=== PATIENT | male | born 1965 | race Caucasian/White ===

== ENCOUNTER 2021-06-23 15:58 | Emergency (ER) | payer OTHER, SELFPAY ==
--- NOTE | ~2021-06-23 | XR_ITS ---
EXAM: XR femur LT min 2V HISTORY: laceration to lower ant/ lat LT femur COMPARISON: None available FINDINGS: Normal mineralization. Joint spaces maintained. Alignment of the hip and knee grossly inta ct. Large soft tissue defect in the anterolateral left thigh. The defect does not appear to extend to the bone. No fracture or dislocation. No periosteal change. No unexpected radiopaque foreign body. IMPRESSION: Left anterolateral thigh laceration. No acute osseous abnormality detected in the left femur. Reviewed, dictated and finalized at location K. IMPRESSION: Left anterolateral thigh laceration. No acute osseous abnormality detected in t he left femur.
[2021-06-23 16:10] VITALS: BP 165/90; PULSE 81; RESP 18; TEMP 36.6; O2SAT 97
[2021-06-23] MEDS: KETOROLAC (*BKC) 60 MG/2 ML VIAL IM (16:29)
--- NOTE | 2021-06-23 16:29 | ED.WOUNDLAC ---
HPI - Wound/Laceration General Chief Complaint: Wound/Laceration Stated Complaint: laceration left leg Time Seen by Provider: 06/23/21 16:01 Source: patient, RN notes reviewed and old records reviewed Mode of arrival: ambulatory Limitations: no limitations History of Present Illness Onset (ago): hour(s) (2) Location: other (left thigh laceration, 5.2 cm) Extremity Location: Left: thigh Place: outdoors Patient tetanus UTD: No Context: accidental Associated symptoms: pain Treatments prior to arrival: bandage Related Data Home Medications Medication Instructions Recorded Confirmed amlodipine 10 mg PO DAILY 06/23/21 06/23/21 budesonide-formoterol [Symbicort] 1 puff INHALATION DAILY 06/23/21 06/23/21 gabapentin 300 mg PO DAILY 06/23/21 06/23/21 losartan 50 mg PO DAILY 06/23/21 06/23/21 Allergies Allergy/AdvReac Type Severity Reaction Status Date / Time codeine Allergy Unknown Nausea Verified 06/23/21 16:23 Review of Systems Review of Systems: All systems reviewed & are unremarkable except as noted in HPI and below PMFSH Past Medical History Medical History Laceration of thigh without complication Family History Family History Other Family history of arthritis Social History Social History Smoking status: Current every day smoker Alcohol intake: current Exam Const: General: no acute distress and alert Orientation/consciousness: patient oriented x3 Limitations: no limitations HENMT: Head: normal to inspection Ears: external ears normal, TM's normal bilaterally and EAC's normal General nose exam: Normal external nose present and Normal nares present Face and sinus: normal facial exam Mouth: Yes moist mucous membranes Eyes: Conjunctivae: conjunctivae normal Pupils: Equal, round and reactive pupils present EOM: EOMs intact bilaterally Neck: Neck: normal visual inspection and no lymphadenopathy Chest: Chest palpation & inspection: normal inspection of the chest Resp: Effort & Inspection: normal respiratory effort Auscultation: clear to auscultation bilaterally Cardio: Rate: regular rate Rhythm: regular rhythm GI: GI Palp: Yes Soft to palpation and No Tenderness to palpation present (GI) Auscultation: normal bowel sounds Back/Spine/Pelvis: Back: no CVA tenderness Skin: General skin exam: normal color Rashes: no rashes Neuro: General: patient oriented x3, moves all extremities, no meningeal signs, no focal motor deficits and CN's II-XI intact bilaterally Extrem: General: no pedal edema Other: lateral left distal thigh 5.2 cm laceration: linear, gaping Psych: Appearance: grossly normal and well kempt Mental Status: mental status grossly normal Affect: normal affect Attitude: cooperative Thought content: Yes Normal thought content present Course Course Emergency Course: Pt was stable in the ED. Post lacerations x 2 repair, pt for home. Reevaluation(s) Reevaluation #1: VSS. Date: 06/23/21 Time: 16:55 Vital Signs Vital signs: Vital Signs Temperature 36.6 C 06/23/21 16:10 Pulse Rate 81 06/23/21 16:10 Respiratory Rate 18 06/23/21 16:10 Blood Pressure 165/90 H 06/23/21 16:10 Pulse Oximetry 97 06/23/21 16:10 Temperature 36.6 C 06/23/21 16:10 Pulse Rate 81 06/23/21 16:10 Respiratory Rate 18 06/23/21 16:10 Blood Pressure 165/90 H 06/23/21 16:10 Pulse Oximetry 97 06/23/21 16:10 Procedures Laceration 1. 5.2 cm linear laceration distal left thigh. 2. Puncture wound distal left thigh.: Date: 06/23/21 Time: 16:47 Site: lower extremity Side (If applicable): left Size (cm): 5.2 Description: linear Depth: involves muscle layer Local Anesthetic: lidocaine 2% Amount of anesthesia used (mL): 5 Pre-repair: wound explored, irr
[2021-06-23] MEDS: cefTRIAXone 1 GM VIAL IM (16:31)
[2021-06-23] MEDS: LIDOCAINE HCL 2% PF INJ 5 ML VIAL INFILTRATE (16:33)
[2021-06-23] MEDS: LIDOCAINE HCL 2% PF INJ 5 ML VIAL ×2 (17:47)
[2021-06-23 17:49] VITALS: BP 132/64; PULSE 80; RESP 16; TEMP 36.6; O2SAT 97
== END 2021-06-23 17:51 | disposition home or self-care (01) ==
PROVIDERS: Emergency Provider Emergency Medicine; PCP Internal Medicine
DX: S71.112A Laceration without foreign body, left thigh, initial encounter (principal)
CPT/HCPCS: 12002; 73552; 96372; 99284; J0696; J1885

== ENCOUNTER 2021-10-04 22:51 | Emergency (ER) | payer OTHER, SELFPAY ==
--- NOTE | ~2021-10-04 | CT_ITS ---
EXAMINATION: CT diagnostic chest wo con DATE: 10/05/2021 00:18 INDICATION: Chest pain after fall TECHNIQUE: Computed tomography (CT) of the chest was performed without intravenous contrast. The dose -length product was 184.04 mGy-cm. Automated exposure control and iterative reconstruction technique were employed. COMPARISON: Chest dated 04/01/2015 FINDINGS: No significant pleural or pericardial effusion. Heart size normal. No thoracic lymphadenopa thy. There is emphysema. There is an irregular shaped nodule in the right upper lobe measuring 7 mm, pleural-based, image 23. There is a 1.4 x 0.4 cm nodule in the right upper lobe, image 13. There is a spiculated nodule in the left lower lobe measuring 1.5 x 1.2 cm, image 59. No pneumothorax. There is an acute nondisplaced left 11th rib fracture posterior laterally. There is a linear nodule in the ri ght upper lobe anteriorly which abuts the pleural surface measuring 1.8 x 0.7 cm no pneumothorax iden tified. No endobronchial lesions. IMPRESSION: 1. Multiple bilateral pulmonary nodules measuring up to 1.8 cm maximum dimension in the right upper l obe. Recommend further evaluation with percutaneous biopsy or PET/CT examination. 2: Acute left 11th rib fracture. No pneumothorax. 3: Emphysema. Reviewed, dictated and finalized at location A. IMPRESSION: 1. Multiple bilateral pulmonary nodules measuring up to 1.8 cm maximum dimensio n in the right upper lobe. Recommend further evaluation with percutaneous biops y or PET/CT examination. 2: Acute left 11th rib fracture. No pneumothorax. 3: Emphysema.
[2021-10-04 23:17] VITALS: BP 153/90; PULSE 69; RESP 20; TEMP 36.6; O2SAT 96
--- NOTE | 2021-10-04 23:56 | ECG_ITS ---
Measurements Intervals [place] Rate: 67 P: 75 DC: 173 QRS: 88 QRSD: 137 T: 54 QT: 400 QTc: 423 Interpretive Statements SINUS RHYTHM INCOMPLETE RIGHT BUNDLE BRANCH BLOCK BASELINE ARTIFACT- I, II, III, AVR, AVL, V1-V3 BORDERLINE ECG Electronically Signed On 10-05-2021 8:49:23 CDT by Josiah Scott D.O.
[2021-10-05 00:20] VITALS: PULSE 67; RESP 20; O2SAT 96
[2021-10-05] MEDS: UMECLIDINIUM BROMIDE 62.5 MCG ELLIPTA 1 PUFF INHALATION ×2 (00:24)
[2021-10-05] MEDS: ALBUTEROL SULFATE (*SP) INHALER 2 PUFF INHALATION (00:24)
[2021-10-05] MEDS: methylPREDNISolone SOD SUCC 125 MG VIAL IV PUSH (00:26)
[2021-10-05] MEDS: KETOROLAC (*BKC) 60 MG/2 ML VIAL IM (00:26)
[2021-10-05 00:29] VITALS: PULSE 68; RESP 20; O2SAT 96
[2021-10-05 00:32] LABS: Base Excess ABG 0.9 mmol/L (0-2); HCO3 ABG 25.4 mmol/L (23-29); Oxygen Content ABG 17.7 %vol (16.0-22.0); Oxygen Saturation ABG 94.1 % (95-97); PCO2 ABG 40.6 mmHg (35-45); PO2 ABG 74.4 mmHg (80-90); Total Hemoglobin 13.5 g/dL (12.0-18.0); pH ABG 7.42 (7.35-7.45)
[2021-10-05 00:34] LABS: Basophils Absolute Auto 0.05 K/mm3 (0.00-0.10); Basophils Percent Auto 0.6 % (0.0-1.0); Eosinophils Absolute Auto 0.15 K/mm3 (0.02-0.50); Eosinophils Percent Auto 1.8 % (1.0-6.0); Hematocrit 39.2 % (40.0-54.0); Hemoglobin 12.5 g/dL (14.0-18.0); Immature Granulocyte Absolute 0.02 K/mm3 (0.00-0.00); Immature Granulocyte Percent A 0.2 % (0.0-0.0); Lymphocytes Absolute Auto 1.93 K/mm3 (1.10-4.50); Lymphocytes Percent Auto 22.7 % (18.0-42.0); Mean Corpuscular HGB Conc 31.9 g/dL (32.0-36.0); Mean Corpuscular Hemoglobin 29.8 pg (27.0-31.0); Mean Corpuscular Volume 93.6 fL (78.0-102.0); Mean Platelet Volume 9.1 fl (8.7-11.0); Monocytes Absolute Auto 0.72 K/mm3 (0.10-0.90); Monocytes Percent Auto 8.5 % (2.0-11.0); Neutrophils Absolute Auto 5.6 K/mm3 (1.7-7.2); Neutrophils Percent Auto 66.2 % (50.0-70.0); Platelet Count Result 335 K/mm3 (150-420); Red Blood Count 4.19 M/mm3 (4.70-6.10); Red Cell Distribution Width 12.7 % (11.6-14.4); White Blood Count 8.5 K/mm3 (4.8-10.8)
[2021-10-05 00:49] LABS: Device ROOM AIR; Modified Allen's Test Pass; Site Drawn LEFT RADIAL
[2021-10-05 00:53] LABS: Alanine Aminotransferase 24 U/L (16-63); Albumin Level 3.3 g/dL (3.4-5.0); Alkaline Phosphatase 116 U/L (46-116); Anion Gap 8 mmol/L (8-16); Aspartate Amino Transferase 18 U/L (15-37); Bilirubin,Total 0.2 mg/dL (0.00-1.00); Blood Urea Nitrogen 18 mg/dL (7-18); Calcium 8.6 mg/dL (8.5-10.1); Carbon Dioxide 25 mmol/L (21-32); Chloride 107 mmol/L (98-108); Estimated CRCL calculation 60 ml/min; Estimated Glomerular Filt Rate > 60; Glucose 102 mg/dL (70-99); Osmolality Calculated 291 mOsm/kg (285-295); Sodium 140 mmol/L (136-145); Total Protein 7.2 g/dL (6.4-8.2); Troponin I 9.2 ng/L (0.00-60.4)
[2021-10-05 00:56] LABS: Lactic Acid Reflex < 0.3 mmol/L (0.4-2.0)
--- NOTE | 2021-10-05 01:19 | ED.BACK ---
HPI - Back Pain/Injury General Chief Complaint: Back Pain/Injury Stated Complaint: back injury Time Seen by Provider: 10/04/21 22:55 Source: patient and RN notes reviewed Mode of arrival: ambulatory Limitations: no limitations History of Present Illness MD elicited complaint: back pain (left postero-lateral lower ribs.) Pertinent past history: recent trauma Onset (ago): hour(s) Timing: constant Severity: moderate Pain scale (0-10): 7 Quality: dull, stabbing and aching Radiation: chest Exacerbating factors: movement and deep breaths Relieving factors: walking Context: turning/twisting Associated symptoms: loss of sensation in lower extremities and other (sob) Related Data Home Medications Medication Instructions Recorded Confirmed budesonide-formoterol HFA 80 1 puff inhalation DAILY 06/23/21 10/04/21 mcg-4.5 mcg/actuation aerosol inhaler (Symbicort) phenytoin sodium extended 100 mg 100 mg PO TID 10/04/21 10/04/21 capsule (Dilantin Extended) Allergies Allergy/AdvReac Type Severity Reaction Status Date / Time codeine Allergy Unknown Nausea Verified 06/23/21 16:23 Review of Systems Review of Systems: All systems reviewed & are unremarkable except as noted in HPI and below Constitutional: Constitutional: Reports no additional constitutional complaints Eyes: Eyes: Reports no additional eye complaints ENT: Reports system reviewed and no additional complaints, except as documented Cardiovascular: Cardiovascular: Reports no additional cardiovascular complaints Respiratory: Respiratory: Reports no additional respiratory complaints Gastrointestinal: Gastrointestinal: Reports no additional gastrointestinal complaints Musculoskeletal: Musculoskeletal: Reports no additional musculoskeletal complaints Comments: tender left lower postero-lateral ribs Integumentary/Breasts: Skin/Breast: Reports system reviewed and no additional complaints, except as docu Neurologic: Reports system reviewed and no additional complaints, except as documented Psychiatric: Psychiatric: Reports no additional psychiatric complaints Endocrine: Endocrine: Reports no additional endocrine complaints Hematologic/Lymphatic: Hematologic/Lymphatic: Reports no additional hematologic/lymphatic complaints Allergic/Immunologic: Allergic/Immunologic: Reports no additional allergic/immunologic complaints [facility] Past Medical History Medical History (Updated 10/05/21 @ 01:44 by Clifford Hernandez MD) Closed rib fracture COPD (chronic obstructive pulmonary disease) Laceration of thigh without complication Pleurisy Family History Family History Other Family history of arthritis Social History Social History Smoking status: Current every day smoker Alcohol intake: current Exam Const: General: healthy appearing and no acute distress Nutritional Appearance: well nourished Orientation/consciousness: patient oriented x3 Limitations: no limitations HENMT: Head: normal to inspection Ears: external ears normal, TM's normal bilaterally and EAC's normal General nose exam: Normal external nose present and Normal nares present Face and sinus: normal facial exam and sinuses nontender Mouth: Yes Normal oral and palatal mucosa present and Yes moist mucous membranes Teeth and gingiva: dentition normal Throat: posterior oropharynx normal Eyes: Conjunctivae: conjunctivae normal Pupils: Equal, round and reactive pupils present EOM: EOMs intact bilaterally Neck: Neck: normal visual inspection, no lymphadenopathy and no meningeal signs Chest: Chest palpation & inspection: normal inspection of the chest Resp: Effort & Inspection: normal respiratory effort Auscultation: crackles, rales, rhonchi and wheezes Other: very tender left lower postero-lateral ribs Cardio: Rate: regular rate Rhythm: regular rhythm GI: GI Palp:
[2021-10-05 01:32] VITALS: BP 114/92; PULSE 87; RESP 18; TEMP 36.4; O2SAT 96
== END 2021-10-05 01:37 | disposition home or self-care (01) ==
PROVIDERS: Emergency Provider Emergency Medicine; PCP Internal Medicine
DX: S22.39XA Fracture of one rib, unspecified side, initial encounter for closed fracture (principal); J44.9 Chronic obstructive pulmonary disease, unspecified; F17.200 Nicotine dependence, unspecified, uncomplicated
CPT/HCPCS: 36415; 36600; 71250; 80053; 82805; 83605; 84484; 85025; 93005; 94640; 96372; 96374; 99284; A9270; J1885; J2930

== ENCOUNTER 2024-08-04 17:52 | Emergency (ER) | payer OTHER, SELFPAY ==
[2024-08-04 17:55] VITALS: BP 179/92; PULSE 68; RESP 16; TEMP 36.8; O2SAT 96
--- NOTE | 2024-08-04 17:57 | ED_ITS ---
HPI - Ear Problem General Chief complaint: Ear Stated complaint: left ear pain Time Seen by Provider: 08/04/24 17:57 Source: patient Mode of arrival: ambulatory Limitations: no limitations History of Present Illness HPI Narrative: 59-year-old male smoker with a history of COPD presents with a 1 day history of -- left ear pain. No drainage. No fever. -- Decreased hearing Complaint: ear pain and decreased hearing Location: left ear Duration: constant Severity: moderate Relieving factors: nothing Exacerbating factors: nothing Discharge from ear: Reports no Associated symptoms ear: decreased hearing Treatment prior to arrival: none Related Data Home Medications ?Medication ?Instructions ?Recorded ?Confirmed ?Last Taken ?Type budesonide-formoterol HFA 80 1 puff inhalation DAILY 06/23/21 10/04/21 Unknown History mcg-4.5 mcg/actuation aerosol inhaler (Symbicort) phenytoin sodium extended 100 mg 100 mg PO TID 10/04/21 10/04/21 Unknown History capsule (Dilantin Extended) Allergies Allergy/AdvReac Type Severity Reaction Status Date / Time codeine Allergy Unknown Nausea Verified 08/04/24 17:58 Review of Systems Review of Systems: All systems reviewed & are unremarkable except as noted in HPI and below PMFSH Past Medical History Medical History COPD (chronic obstructive pulmonary disease) Pleurisy Closed rib fracture Laceration of thigh without complication Family History Family History Other Family history of arthritis Social History Social History Smoking status: Current every day smoker Alcohol intake: current Exam Narrative: blood pressure 179/ 92. Afebrile. Oxygen saturation of 96% on room air. Const: General: no acute distress Nutritional Appearance: thin Orientation/consciousness: patient oriented x3 Limitations: no limitations HENMT: Head: normal to inspection Ears: external ears normal ( Otitis externa left ear) and TM abnormal ( Left tympanic membrane is cloudy and bulging) Face/Nose/Sinus: Normal external nose present Mouth: Yes Normal oral and palatal mucosa present Throat: posterior oropharynx normal Other: decreased hearing- left ear Eyes: Conjunctivae: conjunctivae normal Pupils: Equal, round and reactive pupils present EOM: EOMs intact bilaterally Direct Ophthalmoscopy: no photophobia Neck: Neck: normal visual inspection, no lymphadenopathy and no meningeal signs Chest: Chest palpation & inspection: normal inspection of the chest Resp: Effort & Inspection: normal respiratory effort Auscultation: diminished lung sounds Cardio: Rate: regular rate Rhythm: regular rhythm GI: GI Palp: Yes Soft to palpation Auscultation: normal bowel sounds Other: no tenderness/rigidity / rebound. : General: Yes no CVA tenderness Back/Spine/Pelvis: Back: no CVA tenderness Skin: General skin exam: normal color Rashes: no rashes Wounds: no wounds Other: Lipoma left neck- measuring 2 cm Neuro: General: patient oriented x3, moves all extremities, no meningeal signs and no focal motor deficits Speech: normal speech Extrem: General: normal to inspection and no clubbing, cyanosis or edema Psych: Mental Status: mental status grossly normal Affect: normal affect Attitude: cooperative Course Course Emergency Course: left otitis media-- will treat with Augmentin and Claritin. Vital Signs Vital signs: Vital Signs Temperature 36.8 C 08/04/24 17:55 Pulse Rate 68 08/04/24 17:55 Respiratory Rate 16 08/04/24 17:55 Blood Pressure 179/92 H 08/04/24 17:55 Pulse Oximetry 96 08/04/24 17:55 Oxygen Delivery Room Air 08/04/24 17:55 Temperature 36.8 C 08/04/24 17:55 Pulse Rate 68 08/04/24 17:55 Respiratory Rate 16 08/04/24 17:55 Blood Pressure 179/92 H 08/04/24 17:55 Pulse Oximetry 96 08/04/24 17:55 Oxygen Delivery Room Air 08/04/24 17:55 Medical Decision Making [facility] Narrative Medical decision making narrative: Left otitis media Differential Diagnosis Differential Diagnosis: otitis externa Vital Signs Vital Signs: Vital Signs Temperature 36.8 C 08/04/24 17:55 Pulse Rate 68 08/04/24 17:55 Respiratory Rate 16 08/04/24 17:55 Blood Pressure 179/92 H 08/04/24 17:55 Pulse Oximetry 96 08/04/24 17:55 Oxygen Delivery Room Air 08/04/24 17:55 Temperature 36.8 C 08/04/24 17:55 Pulse Rate 68 08/04/24 17:55 Respiratory Rate 16 08/04/24 17:55 Blood Pressure 179/92 H 08/04/24 17:55 Pulse Oximetry 96 08/04/24 17:55 Oxygen Delivery Room Air 08/04/24 17:55 Discharge Plan Discharge Clinical Impression: Otitis media Patient Disposition: Home Condition: Stable Instructions: Antibiotic Form, Ear Infection (ED) Patient Language: Danish Prescriptions: New amoxicillin-pot clavulanate 875-125 mg tablet 1 tablet PO Q12H Qty: 14 0RF loratadine [Claritin] 10 mg tablet 10 mg PO DAILY Qty: 14 0RF No Action budesonide-formoterol [Symbicort] 80-4.5 mcg/actuation HFA aerosol inhaler 1 puff INHALATION DAILY phenytoin sodium extended [Dilantin Extended] 100 mg Capsule 100 mg PO TID methylprednisolone [Methylpred DP] 4 mg tablets,dose pack See Rx Instructions .ROUTE .COMPLEX Qty: 21 0RF Rx Instructions: orally per package directions albuterol sulfate 90 mcg/actuation HFA aerosol inhaler 2 puff inhalation QID Qty: 8.5 0RF ibuprofen 800 mg tablet 800 mg PO TID Qty: 20 0RF omeprazole magnesium [Prilosec OTC] 20 mg tablet,delayed release (DR/EC) 20 mg PO BID Qty: 20 0RF Follow-up/Referrals: Krishna Shore MD [Primary Care Provider] - Time of Disposition: 18:12
[2024-08-04] MEDS: AMOXICILLIN/CLAVULANATE K 875-125 MG TAB 1 TABLET PO (18:09)
[2024-08-04] MEDS: LORATADINE 10 MG TABLET PO (18:09)
== END 2024-08-04 18:28 | disposition home or self-care (01) ==
LOC: CHSED 18:15
PROVIDERS: Emergency Provider Internal Medicine Critical Care Medicine; PCP Internal Medicine
DX: H66.92 Otitis media, unspecified, left ear (principal); J44.9 Chronic obstructive pulmonary disease, unspecified; F17.200 Nicotine dependence, unspecified, uncomplicated
CPT/HCPCS: 99283; A9270

== ENCOUNTER 2024-08-19 09:32 | Emergency (ER) | payer OTHER, SELFPAY ==
[2024-08-19 09:32] VITALS: BP 177/89; PULSE 76; RESP 18; TEMP 36.4; O2SAT 96
--- NOTE | 2024-08-19 09:47 | ED.SKABFB ---
HPI - Skin/Abscess/Foreign Bdy General Chief complaint: Skin/Abscess/Foreign Body Stated complaint: abscess to right leg Time Seen by Provider: 08/19/24 09:36 Source: patient Mode of arrival: ambulatory Limitations: no limitations History of Present Illness HPI narrative: this is a 59-year-old male with a history of hypertension COPD term presents with some abscess right upper inner leg that is been there for the last 2 to 3 days it is indurated nonfluctuant warm tender to touch with no fever chills no shortness of breath no nausea vomiting. Area has some been painful indurated with no fluctuance no drainage. complaint: abscess/boil Onset (ago): day(s) Location: RUE Severity: moderate Severity scale (1-10): 4 Pain Consistency: constant Related Data Home Medications ?Medication ?Instructions ?Recorded ?Confirmed ?Last Taken ?Type budesonide-formoterol HFA 80 1 puff inhalation DAILY 06/23/21 10/04/21 Unknown History mcg-4.5 mcg/actuation aerosol inhaler (Symbicort) phenytoin sodium extended 100 mg 100 mg PO TID 10/04/21 10/04/21 Unknown History capsule (Dilantin Extended) duloxetine 20 mg capsule,delayed 20 mg PO DAILY 08/19/24 Unknown History release losartan 25 mg tablet 25 mg PO DAILY 08/19/24 Unknown History Allergies Allergy/AdvReac Type Severity Reaction Status Date / Time codeine Allergy Unknown Nausea Verified 08/19/24 09:38 Review of Systems Review of Systems: All systems reviewed & are unremarkable except as noted in HPI and below PMFSH Past Medical History Medical History COPD (chronic obstructive pulmonary disease) Pleurisy Closed rib fracture Laceration of thigh without complication Family History Family History Other Family history of arthritis Social History Social History Smoking status: Current every day smoker Alcohol intake: current Exam Const: General: healthy appearing and no acute distress Nutritional Appearance: well nourished Orientation/consciousness: patient oriented x3 Limitations: no limitations Resp: Effort & Inspection: normal respiratory effort Auscultation: clear to auscultation bilaterally Cardio: Rate: regular rate Rhythm: regular rhythm GI: GI Palp: Yes Soft to palpation Auscultation: normal bowel sounds Skin: Wounds: wounds noted Other: Approximately a 4cm indurated nonfluctuant firm area that is warm and tender to touch the right upper thigh Extrem: General: normal to inspection, no clubbing, cyanosis or edema and no pedal edema Course Course Emergency Course: nonfluctuant area will send antibiotics and anti-inflammatory to patient's pharmacy advised patient to use a warm compress along with medication and follow-up with primary if symptoms persist or worsen. Vital Signs Vital signs: Vital Signs Temperature 36.4 C 08/19/24 09:32 Pulse Rate 76 08/19/24 09:32 Respiratory Rate 18 08/19/24 09:32 Blood Pressure 177/89 H 08/19/24 09:32 Pulse Oximetry 96 08/19/24 09:32 Oxygen Delivery Room Air 08/19/24 09:32 Temperature 36.4 C 08/19/24 09:32 Pulse Rate 76 08/19/24 09:32 Respiratory Rate 18 08/19/24 09:32 Blood Pressure 177/89 H 08/19/24 09:32 Pulse Oximetry 96 08/19/24 09:32 Oxygen Delivery Room Air 08/19/24 09:32 Critical Care Time Critical Care Time Critical Care Time: No Discharge Plan Discharge Clinical Impression: Abscess of skin or subcutaneous tissue Qualifiers: Site of cutaneous abscess: extremity Site of cutaneous abscess of extremity: lower extremity Laterality: right Qualified Code(s): L02.415 - Cutaneous abscess of right lower limb Cellulitis Qualifiers: Site of cellulitis: extremity Site of cellulitis of extremity: upper extremity Laterality: right Qualified Code(s): L03.113 - Cellulitis of right upper limb Patient Disposition: Home Condition: Stable Instructions: Antibiotic Form, Cellulitis (ED), Abscess (ED) Additional Instructions: Advised patient to take medication as prescribed and to use a warm compress to affected area and to follow with primary care physician in 1 week for further evaluation and treatment. Patient Language: Tanzanian Prescriptions: New amoxicillin-pot clavulanate [Augmentin] 500-125 mg tablet 1 tablet PO TID Qty: 30 0RF naproxen 500 mg tablet 500 mg PO BID Qty: 14 0RF No Action budesonide-formoterol [Symbicort] 80-4.5 mcg/actuation HFA aerosol inhaler 1 puff INHALATION DAILY phenytoin sodium extended [Dilantin Extended] 100 mg Capsule 100 mg PO TID albuterol sulfate 90 mcg/actuation HFA aerosol inhaler 2 puff inhalation QID Qty: 8.5 0RF omeprazole magnesium [Prilosec OTC] 20 mg tablet,delayed release (DR/EC) 20 mg PO BID Qty: 20 0RF losartan 25 mg tablet 25 mg PO DAILY duloxetine 20 mg capsule,delayed release(DR/EC) 20 mg PO DAILY Follow-up/Referrals: Krishna Shore MD [Primary Care Provider] - Time of Disposition: 09:51
== END 2024-08-19 10:03 | disposition home or self-care (01) ==
LOC: CHSED 09:56
PROVIDERS: Emergency Provider Emergency Medicine; PCP Internal Medicine
DX: L02.415 Cutaneous abscess of right lower limb (principal); L03.113 Cellulitis of right upper limb; J44.9 Chronic obstructive pulmonary disease, unspecified; I10 Essential (primary) hypertension; F17.200 Nicotine dependence, unspecified, uncomplicated
CPT/HCPCS: 99283

== ENCOUNTER 2024-09-26 20:48 | Emergency (ER) | payer OTHER, SELFPAY ==
--- OUTSIDE RECORDS SUMMARY | 2024-09-26 20:49 | XMS_ITS | Encounter Summary ---
Author Organization [facility] Address [facility] [place] [address] Care Team Providers Care Fitness Floor Attendant Name Role Phone Krishna Shore MD Primary Care Provider [phone] Encounter Details Date Type Department Care Team (Late st Contact Info) Description 08/22/2018 Abstract [facility] CONVERSION [address] [place] [address] , Generic Conversion, Social History Tobacco Use Types Packs/Day Years Used Date Smoking Tobacco: Never Assessed Sex and Gender Information Value Date Recorded Sex Assigned at Not on file Legal Sex Male 6:00 PM [employer] Gender Identity Not on file Sexual Orientation Not on file documented as of this encounter Plan of Treatment Not on file documented as of this encounter Visit Diagnoses Not on filedocumented in this encounter Additional Health Concerns Infection Onset Date Last Indicated Resolved Time COVID-19 Rule Out 05/09/2023 05/09/2023 05/09/2023 11:00 AM [employer] documented as of this encounter Care Teams Fitness Floor Attendant Relationship Specialty Start Date End Date Krishna Shore MD [address] [place] [address] PCP - General INTERNAL MEDICINE 08/27/18 documented as of this encounter
--- OUTSIDE RECORDS SUMMARY | 2024-09-26 20:49 | XMS_ITS | Clinical Summary ---
Author Organization [facility] Address On license of [facility] [place] [address] Care Team Providers Care Thrill Performer Name Role Phone Krishna Shore MD Primary Care Provider [phone] Allergies Active Allergy Reactions Criticality Noted Date Comments Codeine Nausea and Vomiting Low 08/27/2018 Medications clonazePAM 0.5 MG tablet Take 0.5 mg by mouth 2 (two) times a day. 2 9 Active budesonide-form oterol 160-4.5 MCG/ACT inhaler Inhale 2 puffs into the lungs 2 (two) times daily. Active losartan 50 MG tablet Take 1 tablet (50 mg total) by mouth daily. 30 tablet 1 9 Active amlodipine 10 MG tablet Take 1 tablet (10 mg total) by mouth daily. 30 tablet 1 9 Active cyclobenzaprine 10 MG tablet Take 1 tablet (10 mg total) by mouth 3 (three) times daily as needed for Muscle Spasms. 15 tablet 0 Active albuterol sulfate HFA 108 (90 Base) MCG/ACT inhaler Inhale 2 puffs into the lungs every 6 (six) hours as needed for Wheezing or Shortness of breath (Chest tightness). 18 g 4 Active Active Problems Problem Noted Date Diagnosed Date Unstable angina (CMS/HCC [facility]/HCC) 02/21/2019 Uncontrolled hypertension 02/21/2019 Tobacco abuse 02/21/2019 Immunizations Immunization Administration Dates Next Due Afluria 36 MONTHS+ (Prefilled Syringe IIV4) 10/2018 Family History Medical History Relation Comments COPD Father Cancer Mother Heart Disease Mother Relation Status Comments Father Mother Social History Tobacco Use Types Packs/Day Years Used Date Smoking Tobacco: Former Cigarettes 1 25 0 03/17/1998 - 03/17/2023 Smokeless Tobacco: Never Tobacco Cessation:Counseling Given: Not Answered Alcohol Use Standard Drinks/Week Comments No 0 (1 standard drink = 0.6 oz pur e alcohol) AUDIT-C Answer Date Recorded Frequency of Alcohol Consumption Never 08/27/2018 Average Number of Drinks Not on file 019 Frequency of Binge Drinking Not on file 08/15 Sex and Gender Information Value Date Recorded Sex Assigned at Not on file Legal Sex Male 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 REGIONAL DRIVER Gender Identity Not on file Sexual Orientation Not on file Last Filed Vital Signs Vital Sign Reading Time Taken Comments Blood Pressure 125/74 05/09/2023 12:00 PM REGIONAL DRIVER Pulse 63 05/09/2023 11:15 AM REGIONAL DRIVER Temperature 36.4 C (97.5 F) 05/09/2023 10:07 AM REGIONAL DRIVER Respiratory Rate 20 05/09/2023 10:0 7 AM REGIONAL DRIVER Oxygen Saturation 90% 05/09/2023 12: 00 PM REGIONAL DRIVER Inhaled Oxygen Concentration - - Weight 69.8 kg (153 lb 12.8 oz) 024 10:07 AM REGIONAL DRIVER Height 165.1 cm (5' 5) 05/09/2023 10:0 7 AM REGIONAL DRIVER Body Mass Index 25.59 05/09/2023 10:07 AM REGIONAL DRIVER Plan of Treatment Health Maintenance Due Date Last Done Comments ASCVD Statin 1965 Colorectal Cancer Screening Colonoscopy (10 Years) 1965 Annual Physical 02/10/1967 Hepatitis C 02/10/1982 DTaP, Tdap and Td Vaccines ( 1 - Tdap) 02/10/1983 Pneumococcal Vaccine: 50+ Ye ars (1 of 2 - PCV) 02/10/1983 Zoster Vaccines (1 of 2) 02/10/2014 ASCVD LDL 02/22/2020 02/21/2019 COVID-19 Vaccine (1 - 2023-2 5 season) 2023 RSV Immunization or 60+ Years (1 - Risk 60-74 years 1-dose series) 2024 Meningococcal B Vaccine Aged Out No l onger eligible based on patient's age to complete this topic Meningococcal Vaccine Aged Out No licha tisha eligible based on patient's age to complete this topic RSV Immunizations Under 20 Months Aged Out No longer eligible based on patient's age to complete this topic Procedures Procedure Name Priority Date/Time Associated Diagnosis Comments LIPID PANEL Routine 02/21/2019 9:35 AM REGIONAL DRIVER from Last 3 Months or Most Recently Relevant to Health Maintenance Results * LIPID PANEL (02/21/2019 9:35 AM REGIONAL DRIVER) CHOLESTEROL 144 MG/DL 02/21/2019 10:33 AM [facility] Comment:DESIRABLE: <200 TRIGLYCERIDES 84 MG/DL 02/21/2019 10:33 AM [facility] Comment:<150 NORMAL HDL 43 >39 MG/DL 02/21/2019 10:33 AM [facility] LDL (CALCULATED) 84 MG/DL 02/22/20 19 10:33 AM [facility] Comment:<100 OPTIMAL VLDL CALCULATION 17 MG/DL 02/22/20 19 10:33 AM [facility] Comment:REFERENCE RANGE NOT ESTABLISHED CHOL/HDL RATIO 3.3 02/21/2019 10:33 AM [facility] Comment:REFERENCE RANGE NOT ESTABLISHED LDL/HDL 2.0 02/21/2019 10:33 AM [facility] Comment:REFERENCE RANGE NOT ESTABLISHED NON HDL CHOLESTEROL 101 MG/DL 02/21/2019 10:33 AM [facility] Comment:REFERENCE RANGE NOT ESTABLISHED 02/21/2019 9:35 AM REGIONAL DRIVER us Safia Velazquez PA-C LABORATORY Final Res ult [facility] [address] [place] [address], [id number] from Last 3 Months or Most Recently Relevant to Health Maintenance Insurance [employer] Advance Directives * Full Code (Latest Code Status on File) Date Activated Date Inactivated Comments 02/21/2019 3:41 AM 02/22/2019 4:57 PM Care Teams Thrill Performer Relationship Specialty Start Date End Date Krishna Shore MD [address] [place] [address] PCP - General INTERNAL MEDICINE 08/27/18
[2024-09-26 21:00] VITALS: BP 157/93; PULSE 66; RESP 18; TEMP 36.1; O2SAT 97
--- NOTE | 2024-09-26 21:40 | ED.SKABFB ---
HPI - Skin/Abscess/Foreign Bdy General Chief complaint: Skin/Abscess/Foreign Body Stated complaint: Rash Time Seen by Provider: 09/26/24 21:40 Source: patient Mode of arrival: ambulatory Limitations: no limitations History of Present Illness HPI narrative: Patient is a 59-year-old male with diffuse in bilateral upper lower extremity rash after working out in the [place] 2 days ago. Area is pruritic. MD complaint: rash Onset (ago): day(s) ( Two) Location: generalized Severity: moderate Severity scale (1-10): 5 Quality: burning and pruritic Pain Consistency: constant Relieving factors: none Exacerbating factors: none Context: other ( patient having bilateral upper and lower extremity rash which is pruritic after exposure to [employer] work 2 days ago) Associated symptoms: itching Treatments prior to arrival: none Related Data Home Medications ?Medication ?Instructions ?Recorded ?Confirmed ?Last Taken ?Type budesonide-formoterol HFA 80 1 puff inhalation DAILY 06/23/21 10/04/21 Unknown History mcg-4.5 mcg/actuation aerosol inhaler (Symbicort) phenytoin sodium extended 100 mg 100 mg PO TID 10/04/21 10/04/21 Unknown History capsule (Dilantin Extended) duloxetine 20 mg capsule,delayed 20 mg PO DAILY 08/19/24 Unknown History release losartan 25 mg tablet 25 mg PO DAILY 08/19/24 Unknown History Allergies Allergy/AdvReac Type Severity Reaction Status Date / Time codeine Allergy Unknown Nausea Verified 09/26/24 21:25 Review of Systems Review of Systems: All systems reviewed & are unremarkable except as noted in HPI and below Constitutional: Constitutional: Reports no additional constitutional complaints Eyes: Eyes: Reports no additional eye complaints ENT: Reports system reviewed and no additional complaints, except as documented Cardiovascular: Cardiovascular: Reports no additional cardiovascular complaints Respiratory: Respiratory: Reports no additional respiratory complaints Gastrointestinal: Gastrointestinal: Reports no additional gastrointestinal complaints Genitourinary: Genitourinary: Reports no additional male genitourinary complaints Musculoskeletal: Musculoskeletal: Reports no additional musculoskeletal complaints Integumentary/Breasts: Skin/Breast: Reports system reviewed and no additional complaints, except as docu Neurologic: Reports system reviewed and no additional complaints, except as documented Psychiatric: Psychiatric: Reports no additional psychiatric complaints Endocrine: Endocrine: Reports no additional endocrine complaints Hematologic/Lymphatic: Hematologic/Lymphatic: Reports no additional hematologic/lymphatic complaints Allergic/Immunologic: Allergic/Immunologic: Reports no additional allergic/immunologic complaints [facility] Past Medical History Medical History COPD (chronic obstructive pulmonary disease) Pleurisy Closed rib fracture Laceration of thigh without complication Family History Family History Other Family history of arthritis Social History Social History Smoking status: Current every day smoker Alcohol intake: current Exam Const: General: healthy appearing Nutritional Appearance: well nourished Orientation/consciousness: patient oriented x3 HENMT: Head: normal to inspection Ears: external ears normal Face/Nose/Sinus: Normal external nose present Eyes: Conjunctivae: conjunctivae normal Pupils: Equal, round and reactive pupils present EOM: EOMs intact bilaterally Neck: Neck: normal visual inspection Chest: Chest palpation & inspection: normal inspection of the chest Resp: Effort & Inspection: normal respiratory effort and not labored Auscultation: clear to auscultation bilaterally and no crackles Cardio: Rate: regular rate Rhythm: regular rhythm Heart sounds: no murmurs GI: Inspection: non-distended GI Palp: Yes Soft to palpation and No Tenderness to palpation present (GI) Auscultation: normal bowel sounds : General: Yes bladder normal to palpation Back/Spine/Pelvis: Back: no CVA tenderness Skin: General skin exam: normal color Rashes: rash noted Wounds: no wounds Other: diffuse and generalized erythema rash on the upper lower extremities with excoriation Neuro: General: patient oriented x3 Cranial nerves: Yes Nystagmus not present Speech: normal speech Gait exam (Neuro): Normal gait present Extrem: General: normal to inspection Psych: Mental Status: mental status grossly normal Affect: normal affect Attitude: cooperative Course Vital Signs Vital signs: Vital Signs Temperature 36.1 C L 09/26/24 21:00 Pulse Rate 66 09/26/24 21:00 Respiratory Rate 18 09/26/24 21:00 Blood Pressure 157/93 H 09/26/24 21:00 Pulse Oximetry 97 09/26/24 21:00 Oxygen Delivery Room Air 09/26/24 21:00 Temperature 36.1 C L 09/26/24 21:00 Pulse Rate 67 09/26/24 22:14 Respiratory Rate 18 09/26/24 22:14 Blood Pressure 146/84 H 09/26/24 22:14 Pulse Oximetry 96 09/26/24 22:14 Oxygen Delivery Room Air 09/26/24 22:14 MDM - Skin/Abscess/Foreign Bdy MDM Narrative Medical decision making narrative: patient is a 59-year-old male with bilateral and diffuse rash after working in the [employer] for 2 days ago. We will use Atarax and Solu-Medrol. Discharge Plan Discharge Clinical Impression: Contact dermatitis Qualifiers: Contact dermatitis type: irritant Contact dermatitis trigger: non-food plants Qualified Code(s): L24.7 - Irritant contact dermatitis due to plants, except food Patient Disposition: Home Condition: Stable Instructions: Contact Dermatitis (ED) Patient Language: Telugu Prescriptions: New methylprednisolone [Medrol (Bud)] 4 mg tablets,dose pack See Rx Instructions .ROUTE .COMPLEX Qty: 21 0RF Rx Instructions: orally per package directions hydroxyzine HCl 25 mg tablet 25 mg PO TID PRN (Reason: itching) Qty: 20 0RF No Action budesonide-formoterol [Symbicort] 80-4.5 mcg/actuation HFA aerosol inhaler 1 puff INHALATION DAILY phenytoin sodium extended [Dilantin Extended] 100 mg Capsule 100 mg PO TID albuterol sulfate 90 mcg/actuation HFA aerosol inhaler 2 puff inhalation QID Qty: 8.5 0RF omeprazole magnesium [Prilosec OTC] 20 mg tablet,delayed release (DR/EC) 20 mg PO BID Qty: 20 0RF losartan 25 mg tablet 25 mg PO DAILY duloxetine 20 mg capsule,delayed release(DR/EC) 20 mg PO DAILY amoxicillin-pot clavulanate [Augmentin] 500-125 mg tablet 1 tablet PO TID Qty: 30 0RF naproxen 500 mg tablet 500 mg PO BID Qty: 14 0RF Follow-up/Referrals: Krishna Shore MD [Primary Care Provider] - Time of Disposition: 21:56
--- OUTSIDE RECORDS SUMMARY | 2024-09-26 21:58 | XMS_ITS | Clinical Summary ---
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 Gender Identity Not on file Sexual Orientation Not on file Last Filed Vital Signs Vital Sign Reading Time Taken Comments Blood Pressure 125/74 05/09/2023 12:00 PM NEMATOLOGY TEACHER Pulse 63 05/09/2023 11:15 AM NEMATOLOGY TEACHER Temperature 36.4 C (97.5 F) 05/09/2023 10:07 AM NEMATOLOGY TEACHER Respiratory Rate 20 05/09/2023 10:0 7 AM NEMATOLOGY TEACHER Oxygen Saturation 90% 05/09/2023 12: 00 PM NEMATOLOGY TEACHER Inhaled Oxygen Concentration - - Weight 69.8 kg (153 lb 12.8 oz) 024 10:07 AM NEMATOLOGY TEACHER Height 165.1 cm (5' 5) 05/09/2023 10:0 7 AM NEMATOLOGY TEACHER Body Mass Index 25.59 05/09/2023 10:07 AM NEMATOLOGY TEACHER Plan of Treatment Health Maintenance Due Date [...] Comments LIPID PANEL Routine 02/21/2019 9:35 AM NEMATOLOGY TEACHER from Last 3 Months or Most Recently Relevant to Health Maintenance Results * LIPID PANEL (02/21/2019 9:35 AM NEMATOLOGY TEACHER) CHOLESTEROL 144 MG/DL 02/21/2019 10:33 AM [facility] Comment:DESIRABLE: <200 TRIGLYCERIDES 84 MG/DL 02/21/2019 10:33 AM [facility] Comment:<150 NORMAL HDL 43 >39 MG/DL 02/21/2019 10:33 AM [facility] LDL (CALCULATED) 84 MG/DL 02/22/20 19 10:33 AM [facility] Comment:<100 OPTIMAL VLDL CALCULATION 17 MG/DL 02/22/20 19 10:33 AM [facility] Comment:REFERENCE RANGE NOT ESTABLISHED CHOL/HDL RATIO 3.3 02/21/2019 10:33 AM [facility] Comment:REFERENCE RANGE NOT ESTABLISHED LDL/HDL 2.0 02/21/2019 10:33 AM [facility] Comment:REFERENCE RANGE NOT ESTABLISHED NON HDL CHOLESTEROL 101 MG/DL 02/21/2019 10:33 AM [facility] Comment:REFERENCE RANGE NOT ESTABLISHED 02/21/2019 9:35 AM NEMATOLOGY TEACHER us Safia Velazquez PA-C LABORATORY Final Res ult [facility] [address] [place] [address], [id number] from Last 3 Months or Most Recently Relevant to Health Maintenance Insurance [employer] Advance Directives * Full Code (Latest Code Status on File) Date Activated Date Inactivated Comments 02/21/2019 3:41 AM 02/22/2019 4:57 PM Care Teams Fur Cutting Machine Operator Relationship Specialty Start Date End Date Krishna Shore MD [address] [place] [address] PCP - General INTERNAL MEDICINE 08/27/18
--- OUTSIDE RECORDS SUMMARY | 2024-09-26 21:58 | XMS_ITS | Encounter Summary ---
Author Organization [facility] Address [facility] [place] [address] Care Team Providers Care Stress Analyst Name Role Phone Krishna Shore MD Primary Care Provider [phone] Encounter Details Date Type Department Care Team (Late st Contact Info) Description 08/22/2018 Abstract [facility] CONVERSION [address] [place] [address] , Generic Conversion, Social History Tobacco Use Types Packs/Day Years Used Date Smoking Tobacco: Never Assessed Sex and Gender Information Value Date Recorded Sex Assigned at Not on file Legal Sex Male 6:00 PM ENGINE 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 SUPERVISOR Gender Identity Not on file Sexual Orientation Not on file documented as of this encounter Plan of Treatment Not on file documented as of this encounter Visit Diagnoses Not on filedocumented in this encounter Additional Health Concerns Infection Onset Date Last Indicated Resolved Time COVID-19 Rule Out 05/09/2023 05/09/2023 05/09/2023 11:00 AM ENGINE ASSEMBLY SUPERVISOR documented as of this encounter Care Teams Stress Analyst Relationship Specialty Start Date End Date Krishna Shore MD [address] [place] [address] PCP - General INTERNAL MEDICINE 08/27/18 documented as of this encounter
[2024-09-26 22:14] VITALS: BP 146/84; PULSE 67; RESP 18; O2SAT 96
== END 2024-09-26 22:14 | disposition home or self-care (01) ==
LOC: CHSED 21:57
PROVIDERS: Emergency Provider Emergency Medicine; PCP Internal Medicine
DX: L24.7 Irritant contact dermatitis due to plants, except food (principal); J44.9 Chronic obstructive pulmonary disease, unspecified; F17.200 Nicotine dependence, unspecified, uncomplicated
CPT/HCPCS: 96372; 99283; A9270; J2919

== ENCOUNTER 2024-10-06 11:58 | Outpatient (CLI) | payer OTHER, SELFPAY ==
--- NOTE | ~2024-10-06 | US_ITS ---
EXAM: US soft tissue UE RT - 10/06/2024 12:35 CDT History: 59 years old Male with R Forearm Abcess TECHNIQUE: Ultrasound of the right wrist was performed. COMPARISON: None available. FINDINGS/ IMPRESSION: Status post drainage of abscess in the right wrist. No discrete fluid collection seen. There is a 1.0 x 1.3 cm hypoechoic area which may represent focal edema. Diffuse subcutaneous soft tissue edema see n. Findings are concerning for cellulitis. Reviewed, dictated and finalized at location A.
--- OUTSIDE RECORDS SUMMARY | 2024-10-06 12:00 | XMS_ITS | Clinical Summary ---
Author Organization [facility] Address [facility] [place] [address] Care Team Providers Care Rotor Balancer Name Role Phone Krishna Shore MD Primary Care Provider Allergies Active Allergy Reactions Criticality Noted Date [...] Noted Date Diagnosed Date Unstable angina (CMS/HCC [facility]/HCC) 02/21/2019 Uncontrolled hypertension 02/21/2019 Tobacco [...] on file Legal Sex Male 6:00 PM QUILL STRIPPER Gender Identity Not on file Sexual Orientation Not on file Last Filed Vital Signs Vital Sign Reading Time Taken Comments Blood Pressure 125/74 05/09/2023 12:00 PM QUILL STRIPPER Pulse 63 05/09/2023 11:15 AM QUILL STRIPPER Temperature 36.4 C (97.5 F) 05/09/2023 10:07 AM QUILL STRIPPER Respiratory Rate 20 05/09/2023 10:0 7 AM QUILL STRIPPER Oxygen Saturation 90% 05/09/2023 12: 00 PM QUILL STRIPPER Inhaled Oxygen Concentration - - Weight 69.8 kg (153 lb 12.8 oz) 024 10:07 AM QUILL STRIPPER Height 165.1 cm (5' 5) 05/09/2023 10:0 7 AM QUILL STRIPPER Body Mass Index 25.59 05/09/2023 10:07 AM QUILL STRIPPER Plan of Treatment Health Maintenance Due Date [...] Comments LIPID PANEL Routine 02/21/2019 9:35 AM QUILL STRIPPER from Last 3 Months or Most Recently Relevant to Health Maintenance Results * LIPID PANEL (02/21/2019 9:35 AM QUILL STRIPPER) CHOLESTEROL 144 MG/DL 02/21/2019 10:33 AM [facility] Comment:DESIRABLE: <200 TRIGLYCERIDES 84 MG/DL 02/21/2019 10:33 AM [facility] Comment:<150 NORMAL HDL 43 >39 MG/DL 02/21/2019 10:33 AM [facility] LDL (CALCULATED) 84 MG/DL 02/22/20 19 10:33 AM [facility] Comment:<100 OPTIMAL VLDL CALCULATION 17 MG/DL 02/22/20 19 10:33 AM [facility] Comment:REFERENCE RANGE NOT ESTABLISHED CHOL/HDL RATIO 3.3 02/21/2019 10:33 AM [facility] Comment:REFERENCE RANGE NOT ESTABLISHED LDL/HDL 2.0 02/21/2019 10:33 AM [facility] Comment:REFERENCE RANGE NOT ESTABLISHED NON HDL CHOLESTEROL 101 MG/DL 02/21/2019 10:33 AM [facility] Comment:REFERENCE RANGE NOT ESTABLISHED 02/21/2019 9:35 AM QUILL STRIPPER us Safia Velazquez PA-C LABORATORY Final Res ult [facility] [address] [place] [address], [id number] from Last 3 Months or Most Recently Relevant to Health Maintenance Insurance [employer] Advance Directives * Full Code (Latest Code Status on File) Date Activated Date Inactivated Comments 02/21/2019 3:41 AM 02/22/2019 4:57 PM Care Teams Rotor Balancer Relationship Specialty Start Date End Date Krishna Shore MD [address] [place] [address] PCP - General INTERNAL MEDICINE 08/27/18
--- OUTSIDE RECORDS SUMMARY | 2024-10-06 12:00 | XMS_ITS | Encounter Summary ---
Author Organization [facility] Address [facility] [place] [address] Care Team Providers Care Photographer Portrait Name Role Phone Krishna Shore MD Primary Care Provider [phone] Encounter Details Date Type Department Care Team (Late st Contact Info) Description 08/22/2018 Abstract [facility]FL CONVERSION [address] [place] [address] , Generic Conversion, Social History Tobacco Use Types Packs/Day Years Used Date Smoking Tobacco: Never Assessed Sex and Gender Information Value Date Recorded Sex Assigned at Not on file Legal Sex Male 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
[2024-10-06 12:24] LABS: Hematocrit 40.2 % (40.0-54.0); Hemoglobin 12.8 g/dL (14.0-18.0); Immature Granulocyte Percent A 0.5 % (0.0-0.0); Lymphocytes Absolute Auto 1.75 K/mm3 (1.10-4.50); Mean Corpuscular HGB Conc 31.8 g/dL (32-36); Mean Corpuscular Hemoglobin 29.6 pg (27.0-31.0); Mean Corpuscular Volume 93.1 fL (78.0-102.0); Nucleated Red Blood Cells Absolute Auto 0.00 K/mm3 (0.00-0.00); Nucleated Red Blood Cells Perc 0.0 % (0-0.0); Platelet Count Result 322 K/mm3 (150-420); Red Blood Count 4.32 M/mm3 (4.70-6.10); White Blood Count 7.9 K/mm3 (4.8-10.8)
[2024-10-06 12:50] LABS: Anion Gap 5 mmol/L (4-12); Blood Urea Nitrogen 37 mg/dL (9-20); Calcium 8.8 mg/dL (8.4-10.2); Carbon Dioxide 25 mmol/L (22-30); Chloride 106 mmol/L (98-107); Estimated Glomerular Filt Rate 48; Glucose 133 mg/dL (65-110); Osmolality Calculated 292 mOsm/kg (285-295); Potassium 4.2 mmol/L (3.4-5.0); Sodium 136 mmol/L (137-145)
== END 2024-10-06 11:59 | disposition home or self-care (01) ==
LOC: CHSLAB 11:59
PROVIDERS: PCP Internal Medicine; Visit Provider Nurse Practitioner Family
DX: L02.413 Cutaneous abscess of right upper limb (principal); M79.89 Other specified soft tissue disorders
CPT/HCPCS: 36415; 76882; 80048; 85025

== ENCOUNTER 2025-03-07 18:26 | Emergency (ER) | payer OTHER, SELFPAY ==
[2025-03-07] VITALS (7 sets, daily range): BP systolic 172–197; BP diastolic 100–127; PULSE 68–82; RESP 18–20; TEMP 36.6–37.1; O2SAT 95–98
--- OUTSIDE RECORDS SUMMARY | 2025-03-07 18:35 | XMS_ITS | Clinical Summary ---
Author Organization [facility] Address [address] [place] [address] Care Team Providers Care Laboratory Inspector Name Role Phone Krishna Shore MD Primary Care Provider [phone] Allergies Active Allergy Reactions Criticality Noted Date [...] Problem Noted Date Diagnosed Date Unstable angina 02/21/2019 Uncontrolled hypertension 02/21/2019 Tobacco abuse 02/21/2019 [...] on file Legal Sex Male 6:00 PM SPEECH LANGUAGE PATHOLOGIST PRN Gender Identity Not on file Sexual Orientation Not on file Last Filed Vital Signs Vital Sign Reading Time Taken Comments Blood Pressure 125/74 05/09/2023 12:00 PM SPEECH LANGUAGE PATHOLOGIST PRN Pulse 63 05/09/2023 11:15 AM SPEECH LANGUAGE PATHOLOGIST PRN Temperature 36.4 C (97.5 F) 05/09/2023 10:07 AM SPEECH LANGUAGE PATHOLOGIST PRN Respiratory Rate 20 05/09/2023 10:0 7 AM SPEECH LANGUAGE PATHOLOGIST PRN Oxygen Saturation 90% 05/09/2023 12: 00 PM SPEECH LANGUAGE PATHOLOGIST PRN Inhaled Oxygen Concentration - - Weight 69.8 kg (153 lb 12.8 oz) 024 10:07 AM SPEECH LANGUAGE PATHOLOGIST PRN Height 165.1 cm (5' 5) 05/09/2023 10:0 7 AM SPEECH LANGUAGE PATHOLOGIST PRN Body Mass Index 25.59 05/09/2023 10:07 AM SPEECH LANGUAGE PATHOLOGIST PRN Plan of Treatment Health Maintenance Due Date Last Done Comments ASCVD Statin 1965 Colorectal Cancer Screening Colonoscopy (10 Years) 1965 Annual Physical 02/10/1967 Hepatitis C 02/10/1982 DTaP, Tdap and Td Vaccines ( 1 - Tdap) 02/10/1983 Pneumococcal Vaccine: 50+ Ye ars (1 of 2 - PCV) 02/10/1983 Zoster Vaccines (1 of 2) 02/10/2014 ASCVD LDL 02/22/2020 02/21/2019 RSV Immunization or 60+ Years (1 - Risk 60-74 years 1-dose series) 2024 COVID-19 Vaccine (1 - 2024-2 6 season) 2024 Influenza Adult (#1) 2024 02/21/2019 Hepatitis A Vaccines Aged Out No long er eligible based on patient's age to complete this topic Meningococcal B Vaccine Aged Out No l [...] Comments LIPID PANEL Routine 02/21/2019 9:35 AM SPEECH LANGUAGE PATHOLOGIST PRN from Last 3 Months or Most Recently Relevant to Health Maintenance Results * LIPID PANEL (02/21/2019 9:35 AM SPEECH LANGUAGE PATHOLOGIST PRN) CHOLESTEROL 144 MG/DL 02/21/2019 10:33 AM SPEECH LANGUAGE PATHOLOGIST PRN [facility] Comment:DESIRABLE: <200 TRIGLYCERIDES 84 MG/DL 02/21/2019 10:33 AM [facility] Comment:<150 NORMAL HDL 43 >39 MG/DL 02/21/2019 10:33 AM [facility] LDL (CALCULATED) 84 MG/DL 02/22/20 19 10:33 AM [facility] Comment:<100 OPTIMAL VLDL CALCULATION 17 MG/DL 02/22/20 19 10:33 AM [facility] Comment:REFERENCE RANGE NOT ESTABLISHED CHOL/HDL RATIO 3.3 02/21/2019 10:33 AM [facility] Comment:REFERENCE RANGE NOT ESTABLISHED LDL/HDL 2.0 02/21/2019 10:33 AM [facility] Comment:REFERENCE RANGE NOT ESTABLISHED NON HDL CHOLESTEROL 101 MG/DL 02/21/2019 10:33 AM [facility] Comment:REFERENCE RANGE NOT ESTABLISHED 02/21/2019 9:35 AM SPEECH LANGUAGE PATHOLOGIST PRN us Safia Velazquez PA-C LABORATORY Final Res ult [facility] [address] [place] [address], [id number] from Last 3 Months or Most Recently Relevant to Health Maintenance Insurance [employer] Advance Directives * Full Code (Latest Code Status on File) Date Activated Date Inactivated Comments 02/21/2019 3:41 AM 02/22/2019 4:57 PM Care Teams Laboratory Inspector Relationship Specialty Start Date End Date Krishna Shore MD [address] [place] [address] PCP - General INTERNAL MEDICINE 08/27/18
--- OUTSIDE RECORDS SUMMARY | 2025-03-07 18:35 | XMS_ITS ---
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 Name Role Phone HELADIO FENTON Attending Unavailable NO PCP Primary Unavailable Immunization Immunization Date Status Additional Notes Code Code System Tdap 08/22/2017 Completed 115 CVX Influenza, split virus, trivalent, preservative 03/31/2015 Completed 141 CVX Influenza, split virus, quadrivalent, PF 02/07/2017 Completed 150 CVX Influenza, split virus, quadrivalent, PF 02/21/2019 Completed 150 CVX Results 4 PLEX RESPIRATORY COVID FLU RSV PCR - Collect Date/Time: 03/27/2024 11:13 [facility] ID: [id number] [address] [place] [address], [phone] LOINC: 29704-4 Test Value Unit Reference Range Code Code System Flag SARS CoV2 PCR NEGATIVE FLU A PCR NEGATIVE FLU B PCR NEGATIVE RSV PCR NEGATIVE SEND TO I[facility]? YES GROUP A STREP BY PCR - Colle ct Date/Time: 03/27/2024 11:13 [facility] ID: [id number] [address] [place] [address], [phone] LOINC: 72932-9 Test Value Unit Reference Range Code Code System Flag GRP A STREP PCR NEGATIVE NORMAL: NEGATIVE CHEST 2V - Completed: 2024 11:58 LOINC: \TM00\\12PI\\DRAo\\BM09\ \MRLo\ [address] [address] ---------NAME--------- NUMBER SEX AGE ADMIT DISC. XRAY# F/C TYPE RADHA PFEIFFER [id number] M 59 03/27/24 54325 XB7 Dominguez DATE OF : 1965 M/R# [id number] #: [id number] [id number] \MRHx\ LOCATION: TRANSCRIBED: 03/27/24 12:00 CHEST 2V [id number] COMPLETED:03/27/24 11:58 JDF [id number] Cough PHYSICIAN: HELADIO Christy R A D I O L O G Y R E P O R T CLINICAL INFORMATION: 59 years old, Male; Cough. TECHNIQUE: Frontal and lateral chest radiographs were obtained. COMPARISON: Radiographs dated 10/14/2023. FINDINGS: Lungs: Clear. Cardiac: Heart size is within normal limits. Pulmonary vasculature: Unremarkable Mediastinum/live: Within normal limits. Bones: No evidence of acute osseous abnormality. Degenerative disc disease in the thoracic spine with multilevel moderate disc space narrowing, endplate sclerosis, and endplate spurring. Other: No other significant finding. IMPRESSION: 1. No evidence of acute disease in the chest. 2. Nonacute findings as described above. STICS ASSOCIATE \ITLo\ \UNDo\ \UNDx\ \ITLx\ Reviewed and Electronically Signed by: Kuldip Momin DO Signed Date: 03/27/24 12:00 Social History Type Status Start Date End Date Code Code Syst em Sex Male Hospital Discharge Instructions Should you have any questions prior to discharge, please contact a member of your healthcare team. If you have left the hospital and have any questions, please contact your primary care physician. Reason For Referral No Data Found Plan of Treatment No Data Found Encounters Encounter Diagnosis Start Date Code Code Sys tem Unspecified otitis externa, left ear 03/27/2024 SNOMED-CT Personal Care Team Section Imaging Narrative Notes [facility] 03/27/2024 12:[address] [address] ---------NAME--------- NUMBER SEX AGE ADMIT DISC. XRAY# F/C TYPE RADHA PFEIFFER [id number] M 59 03/27/24 82023 XB7 E.R. DATE OF : 1965 M/R# [id number] #: [id number] ED-35 LOCATION: TRANSCRIBED: 03/27/24 12:00 CHEST 2V [id number] COMPLETED:03/27/24 11:58 JDF [id number] Cough PHYSICIAN: HELADIO Christy RADIOLOGY REPORT CLINICAL INFORMATION: 59 years old, Male; Cough. TECHNIQUE: Frontal and lateral chest radiographs were obtained. COMPARISON: Radiographs dated 10/14/2023. FINDINGS: Lungs: Clear. Cardiac: Heart size is within normal limits. Pulmonary vasculature: Unremarkable Mediastinum/live: Within normal limits. Bones: No evidence of acute osseous abnormality. Degenerative disc disease in the thoracic spine with multilevel moderate disc space narrowing, endplate sclerosis, and endplate spurring. Other: No other significant finding. IMPRESSION: 1. No evidence of acute disease in the chest. 2. Nonacute findings as described above. STICS ASSOCIATE Reviewed and Electronically Signed by: Kuldip Momin DO Signed Date: 03/27/24 12:00
--- OUTSIDE RECORDS SUMMARY | 2025-03-07 18:35 | XMS_ITS ---
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 Role Phone NEHA MONTANA Attending Unavailable NO PCP Primary Unavailable Immunization Immunization Date Status Additional Notes Code Code System Tdap 08/22/2017 Completed 115 CVX Influenza, split virus, trivalent, preservative 03/31/2015 Completed 141 CVX Influenza, split virus, quadrivalent, PF 02/07/2017 Completed 150 CVX Influenza, split virus, quadrivalent, PF 02/21/2019 Completed 150 CVX Results RIBS LEFT W/ 1V CHEST - Comp leted: 10/14/2023 11:56 LOINC: EXAM DESCRIPTION: RIBS LEFT W/ 1V CHEST REASON FOR STUDY: left posterior rib pain smoker copd fell 1 week ago Duration: 1 week TECHNIQUE: 2 view(s) of the left ribs with single view of the chest COMPARISON: None available FINDINGS: HEART/MEDIASTINUM: Normal heart size. LUNGS: No focal opacity, pleural effusion, or pneumothorax. RIBS: No acute rib fracture. OTHER: No other acute findings. IMPRESSION: No acute findings. THIS IS AN ELECTRONICALLY VERIFIED FINAL REPORT 10/14/2023 12:04 PM - Electronically signed by Cuong Smith M.D. JR: Report ID: [id number] Reading Location: [id number] Social History Type Status Start Date End [...] Diagnosis Start Date Code Code Sys tem Pleurodynia 10/14/2023 SNOMED-CT Personal Care Team Section Imaging Narrative Notes
--- OUTSIDE RECORDS SUMMARY | 2025-03-07 18:35 | XMS_ITS | Encounter Summary ---
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 Gender Identity Not on file Sexual Orientation Not on file documented as of this encounter Plan of Treatment Not on file documented as of this encounter Visit Diagnoses Not on filedocumented in this encounter Additional Health Concerns Infection Onset Date Last Indicated Resolved Time COVID-19 Rule Out 05/09/2023 05/09/2023 05/09/2023 11:00 AM HOUSING PROJECT MANAGER documented as of this encounter Care Teams Machine Repairer Maintenance Relationship Specialty Start Date End Date Krishna Shore MD [address] [place] [address] PCP - General INTERNAL MEDICINE 08/27/18 documented as of this encounter
[2025-03-07] MEDS: LIDOCAINE 1% LOCAL INJ 10 ML VIAL INFILTRATE (18:50)
[2025-03-07] MEDS: TETANUS,DIPHTHERIA,AC PERTUSSIS ADULT 0.5 ML (ADACEL) IM (18:51)
--- NOTE | 2025-03-07 19:21 | PC.NURSE ---
Handoff report given to ISH Wyman.
--- NOTE | 2025-03-07 19:32 | ED.WOUNDLAC ---
HPI - Wound/Laceration General Chief Complaint: Wound/Laceration Stated Complaint: right ring finger laceration Time Seen by Provider: 03/07/25 18:40 Source: patient and family Mode of arrival: ambulatory Limitations: no limitations History of Present Illness HPI narrative: Patient is a 60-year-old male presents with a gaping laceration to the palmar surface of his right middle finger has good range of motion no numbness or tingling currently no bleeding. Occurred earlier today after he was working on a compressor. Onset (ago): hour(s) Location: other Patient tetanus UTD: No Context: accidental Associated symptoms: none Related Data Home Medications ?Medication ?Instructions ?Recorded ?Confirmed ?Last Taken ?Type duloxetine 20 mg capsule,delayed 20 mg PO DAILY 08/19/24 03/07/25 Unknown History release losartan 25 mg tablet 25 mg PO DAILY 08/19/24 03/07/25 Unknown History Allergies Allergy/AdvReac Type Severity Reaction Status Date / Time codeine Allergy Unknown Nausea Verified 03/07/25 18:38 Review of Systems Review of Systems: All systems reviewed & are unremarkable except as noted in HPI and below PMFSH Past Medical History Medical History COPD (chronic obstructive pulmonary disease) Pleurisy Closed rib fracture Laceration of thigh without complication Family History Family History Other Family history of arthritis Social History Social History Smoking status: Current every day smoker Alcohol intake: current Exam Const: General: healthy appearing Nutritional Appearance: well nourished Resp: Effort & Inspection: normal respiratory effort Auscultation: clear to auscultation bilaterally Cardio: Rate: regular rate Rhythm: regular rhythm GI: GI Palp: Yes Soft to palpation Auscultation: normal bowel sounds Skin: Wounds: wounds noted Neuro: General: patient oriented x3, moves all extremities and no meningeal signs Course Course Emergency Course: Medical decision making narrative: The patient was evaluated by myself in the emergency department. History obtained from patient was an independent historian and physical exam performed and witnessed by nurse. Patient had a gaping laceration about 2-1/2cm palmar surface of his right middle finger and updated with his tetanus 6 sutures were placed. Patient tolerated procedure well. Patient has a headache and a dose of 600mg p.o. Motrin administered. Repeat assessment: Patient doing well on repeat exam with no acute distress Symptoms are stable since arrival to the ED Repeat vitals are stable Patient agrees with discussion after shared medical decision-making and agrees with discharge All questions answered to the patient's satisfaction Advised follow-up in 7 8 days for suture removal with primary care physician. Vital Signs Vital signs: Vital Signs Temperature 37.1 C 03/07/25 18:26 Pulse Rate 82 03/07/25 18:26 Respiratory Rate 18 03/07/25 18:26 Blood Pressure 172/100 H 03/07/25 18:26 Pulse Oximetry 95 03/07/25 18:26 Oxygen Delivery Room Air 03/07/25 18:26 Temperature 37.1 C 03/07/25 18:26 Pulse Rate 82 03/07/25 18:26 Respiratory Rate 18 03/07/25 18:26 Blood Pressure 172/100 H 03/07/25 18:26 Pulse Oximetry 95 03/07/25 18:26 Oxygen Delivery Room Air 03/07/25 18:26 Procedures Laceration Laceration 1: Date: 03/07/25 Time: 19:36 Site: other (Right middle finger) Side (If applicable): right Size (cm): 2.5 Description: linear Depth: simple, single layer Local Anesthetic: lidocaine 1% Amount of anesthesia used (mL): 8 Pre-repair: wound explored, irrigated and irrigated extensively ====== Skin Level ====== Skin layer closed with: vicryl Size (cm): 5-0 Number of sutures: 6 Technique: simple, interrupted ====== Subcutaneous Layer ====== ====== Muscle Layer ====== ====== Tendon Layer ====== MDM Differential Diagnosis Differential Diagnosis: Laceration finger Critical Care Time Critical Care Time Critical Care Time: No Discharge Plan Discharge Clinical Impression: Laceration Patient Disposition: Home Condition: Stable Instructions: Antibiotic Form, Care For Your Stitches (ED), Laceration (ED) Additional Instructions: Advised patient to take Tylenol or Motrin as needed, follow with primary in 7 8 days for suture removal. Patient Language: Slovak Prescriptions: No Action albuterol sulfate 90 mcg/actuation HFA aerosol inhaler 2 puff inhalation QID Qty: 8.5 0RF losartan 25 mg tablet 25 mg PO DAILY duloxetine 20 mg capsule,delayed release(DR/EC) 20 mg PO DAILY hydroxyzine HCl 25 mg tablet 25 mg PO TID PRN (Reason: itching) Qty: 20 0RF Follow-up/Referrals: Krishna Shore MD [Primary Care Provider, Internal Medicine] Time of Disposition: 19:37
[2025-03-07] MEDS: ACETAMINOPHEN 500 MG TABLET 1000 MG PO (19:40)
--- NOTE | 2025-03-07 19:48 | PC.NURSE ---
Pt c/o throbbing H./A and tylenol given. 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 When taking pts BP at time of D/C, noted very elevated BP. Pt states he is supposed to be on BP medicine but hasn't taken in a while and doesn't know name of BP med. Order obtained for Norvasc from Dr Melendrez for pts high BP.
--- NOTE | 2025-03-07 20:38 | PC.NURSE ---
Lights dimmed for pt to rest after giving Clonodine per ERP order.
== END 2025-03-07 20:58 | disposition home or self-care (01) ==
PROVIDERS: Emergency Provider Emergency Medicine; PCP Internal Medicine
DX: S61.215A Laceration without foreign body of left ring finger without damage to nail, initial encounter (principal); J44.9 Chronic obstructive pulmonary disease, unspecified; F17.200 Nicotine dependence, unspecified, uncomplicated; Z79.899 Other long term (current) drug therapy; W45.8XXA Other foreign body or object entering through skin, initial encounter; Z23 Encounter for immunization
CPT/HCPCS: 12001; 90471; 90715; 99283; A9270; J2003